=== PATIENT | male | born 1955 | race Caucasian/White ===

== ENCOUNTER 2024-08-09 10:00 | Emergency (ER) | payer MEDICARE, BC ==
[2024-08-09 10:19] VITALS: BP 168/90; PULSE 65; TEMP 98.6
--- NOTE | 2024-08-09 10:52 | ED ---
Fall HPI - General Chief Complaint: Fall Stated Complaint: Fall, left back injury Time Seen by Provider: 08/09/24 10:07 Source: patient, RN notes reviewed Mode of arrival: ambulatory Limitations: no limitations - History of Present Illness Initial Comments: This is a 69-year-old male who presents to the emergency department for a fall. Patient slipped on the wood floor in his kitchen 3 days ago and landed on his left side. He has since had pain to the back of the left rib cage. Denies hitting his head or any LOC. He is on warfarin for history of A-fib. Pain is not worse when he tries to breathe, however it is worse with any kind of movement or pressure. He tried taking Tylenol earlier today but did not have any relief. MD Complaint: fall - Related Data Previous Rx's Medication Instructions Recorded HYDROcodone/APAP 5-325MG [Norphlet 1 tab PO Q4HR PRN 3 Days #18 tab 08/09/24 5-325] Lidocaine 5% Patch [Lidoderm 5% 1 patch TOPICAL DAILY PRN #30 patch 08/09/24 Patch] methocarbamoL [Robaxin-750] 1,500 mg PO TID PRN #30 tab 08/09/24 Allergies Allergy/AdvReac Type Severity Reaction Status Date / Time No Known Allergies Allergy Verified 08/09/24 10:05 Review of Systems ROS Statement: Those systems with pertinent positive or pertinent negative responses have been documented in the HPI. ROS Other: All systems not noted in ROS Statement are negative. Past Medical History Past Medical History: Atrial Fibrillation, Hyperlipidemia, Hypertension, Seizure Disorder History of Any Multi-Drug Resistant Organisms: None Reported Past Surgical History: Heart Catheterization, Heart Catheterization With Stent Past Psychological History: No Psychological Hx Reported Smoking Status: Former smoker Past Alcohol Use History: Daily Past Drug Use History: None Reported General Exam Limitations: no limitations General appearance: alert, in no apparent distress Head exam: Present: atraumatic, normocephalic, normal inspection Respiratory exam: Present: normal lung sounds bilaterally. Absent: respiratory distress, wheezes, rales, rhonchi, stridor Cardiovascular Exam: Present: regular rate, normal rhythm Back exam: Present: other (Tenderness over the left posterior rib cage) Neurological exam: Present: alert, oriented X3, CN II-XII intact Psychiatric exam: Present: normal affect, normal mood Skin exam: Present: warm, dry, intact, normal color. Absent: rash Course Vital Signs 08/09/24 08/09/24 10:03 12:35 Temperature 98.6 F Pulse Rate 65 Respiratory 22 18 Rate Blood Pressure 168/90 O2 Sat by Pulse 99 Oximetry Medical Decision Making - Medical Decision Making This is a 69-year-old male who presents to the emergency department for rib pain after a fall. Was pt. sent in by a medical professional or institution? @ -No Did you speak to anyone other than the patient for history? @ -No Did you review nursing and triage notes? @ -Yes, and I agree, it is accurate with regards to the patient's symptoms. Were old charts reviewed? @ -No Differential Diagnosis? @ -Fracture, rib contusion, pneumothorax, this is not meant to be an all- inclusive list. EKG interpreted by me (3pts min.)? @ -Not obtained X-rays interpreted by me (1pt min.)? @ -Not obtained CT interpreted by me (1pt min.)? @ -CT scan of the chest obtained. My interpretation identifies left rib fractures. U/S interpreted by me (1pt. min.)? @ -Not obtained What testing was considered but not performed? (CT, X-rays, U/S, labs)? Why? @ -None What meds were considered but not given? Why? @ -None Did you discuss the management of the patient with other professionals? @ -No Did you reconcile home meds? @ -No Was smoking cessation discussed for >3mins.? @ -No Was critical care preformed (if so, how long)? @ -No Were there social determinants of health that impacted care today? How? (Homelessness, low income, unemployed, alcoholism, drug addiction, transportation, low edu. Level, literacy, decrease access to med. care, residential, rehab)? @ -No Was there de-escalation of care discussed even if they declined? (Discuss DNR or withdrawal of care, Hospice)? @ -No What co-morbidities impacted this encounter? (DM, HTN, Smoking, COPD, CAD, Cancer, CVA, Hep., AIDS, mental health diagnosis, sleep apnea, morbid obesity)? @ -A-fib Was patient admitted / discharged? @ -Discharged. CT scan of the chest demonstrates acute fractures of the left ribs 10 and 11 with mild displacement. Findings reviewed with the patient. His symptoms were well-controlled in the emergency department. Because he is on warfarin and unable to take NSAIDs, he was given a prescription for Norphlet along with Robaxin and lidocaine patches. Because of the location of the fractures, he is not struggling to take deep breaths. However, advised that he continue to be mindful of the need to continue taking deep breaths several times each day to reduce the risk of secondary pneumonia. Otherwise advised close follow-up with his PCP. Patient discharged home in stable condition. Case discussed with ED attending Dr. Rosenberg. Return precautions reviewed in depth, the patient is instructed to return to the emergency department with any new, worsening, or concerning symptoms. Patient verbalized understanding. Undiagnosed new problem with uncertain prognosis? @ -None Drug Therapy requiring intensive monitoring for toxicity (Heparin, Nitro, Insulin, Cardizem)? @ -None Were any procedures done? @ -None Diagnosis/symptom? @ -Left rib fractures Acute, or Chronic, or Acute on Chronic? @ -Acute Uncomplicated (without systemic symptoms) or Complicated (systemic symptoms)? @ -Uncomplicated Side effects of treatment? @ -None Exacerbation, Progression, or Severe Exacerbation] @ -Not applicable Poses a threat to life or bodily function? @ -No - Radiology Data Radiology results: report reviewed, image reviewed Disposition Clinical Impression: Fall, Left rib fracture Disposition: HOME SELF-CARE Instructions (If sedation given, give patient instructions): Rib Fracture (ED), Fall Prevention for Older Adults (ED) Additional Instructions: Return to the emergency department with any new, worsening, or concerning symptoms. Take the Norphlet every 4-6 hours as needed for pain relief. You can take the Robaxin as 1 to 2 tablets up to 3 times daily. Be aware that this may make you drowsy. You can also apply the lidocaine patches daily. Follow up with your primary care provider in 1-2 days. Prescriptions: Lidocaine 5% Patch [Lidoderm 5% Patch] 1 patch TOPICAL DAILY PRN #30 patch PRN Reason: Pain HYDROcodone/APAP 5-325MG [Norphlet 5-325] 1 tab PO Q4HR PRN 3 Days #18 tab PRN Reason: Pain methocarbamoL [Robaxin-750] 1,500 mg PO TID PRN #30 tab PRN Reason: Pain Is patient prescribed a controlled substance at d/c from ED?: Yes Referrals: Rich Wheeler MD [Primary Care Provider] - 1-2 days Time of Disposition: 11:48
[2024-08-09] MEDS: MORPHINE SULFATE 4 MG/ML SYRINGE IM STA (10:53)
--- NOTE | 2024-08-09 11:36 | CT ---
EXAMINATION TYPE: CT chest wo con DATE OF EXAM: 08/09/2024 11:01 AM COMPARISON: None. CLINICAL INDICATION: Male, 69 years old with history of Left rib cage and back pain after fall; PHH, Left rib cage and back pain after fall TECHNIQUE: Multiple axial images were obtained through the chest. Sagittal and coronal reformats were created for review. MIP was performed on a separate workstation. Contrast used: mL of (None if empty) Oral contrast used: (None if empty) CT DLP: 445.2 mGycm, Automated exposure control for dose reduction was used. FINDINGS: LUNGS/ PLEURA: No focal consolidation, pneumothorax or pleural effusion. AIRWAY: Patent and unremarkable. HEART: Size within normal limits. No significant coronary artery calcifications. MEDIASTINUM: No gross evidence of adenopathy. Small hiatal hernia. VASCULATURE: No aortic aneurysm. MUSCULOSKELETAL: Fractures are identified within left ribs 10 and 11 in the posterior lateral aspect. There is only one fracture identified in these ribs. No additional fractures are visualized. Vertebr al body hemangioma involving T4 vertebral body. Moderate degeneration changes with osteophyte formati on disc space narrowing vacuum discs phenomenon and facet arthropathy. SOFT TISSUES/LYMPH NODES: Unremarkable. LOWER NECK: No significant findings. UPPER ABDOMEN: Gallbladder surgically absent. Fat-containing umbilical hernia. The appendix appears n ormal. IMPRESSION: 1. Acute fractures of left ribs 10 and 11 with mild displacement. 2. Small hiatal hernia. [facility], , 08/09/2024 11:34 AM
[2024-08-09 12:36] VITALS: RESP 18
== END 2024-08-09 12:36 | disposition home or self-care (01) ==
LOC: EC 10:00
DX: S22.32XA Fracture of one rib, left side, initial encounter for closed fracture (principal); I48.91 Unspecified atrial fibrillation; Z87.891 Personal history of nicotine dependence; W01.0XXA Fall on same level from slipping, tripping and stumbling without subsequent striking against object, initial encounter
CPT/HCPCS: 71250; 99283; 96372; J2270